=== PATIENT | female | born 1935 | race Caucasian/White ===

== ENCOUNTER 2017-09-13 07:46 | Outpatient (CLI) | payer MEDICARE, BC ==
--- NOTE | 2017-09-13 14:02 | NM ---
NUCLEAR MEDICINE HIDA WITH DRUG: History Epigastric pain. COMPARISON: None. TECHNIQUE: Real-time planar imaging of the abdomen was performed after the intravenous administration of 4.9 mCi Technetium 99m Mebrofenin. Subsequently for ejection fraction, 8 ounces of ensure was given. FINDINGS: There is adequate early hepatic uptake of radiotracer. The common bile duct is seen quickly as well as the gallbladder. Bowel is seen. The calculated gallbladder ejection fraction is 43%, although this is over a time of nearly 1 hour. IMPRESSION: Normal nuclear medicine HIDA scan with ejection fraction. POS: [facility]
== END 2017-09-13 07:47 | disposition home or self-care (01) ==
LOC: NM 07:46
PROVIDERS: ATTEND Internal Medicine
DX: K81.0 Acute cholecystitis (principal); K21.0 Gastro-esophageal reflux disease with esophagitis; R14.0 Abdominal distension (gaseous); K58.9 Irritable bowel syndrome, unspecified
CPT/HCPCS: 78227; A9537

== ENCOUNTER 2018-07-27 09:44 | Outpatient (CLI) | payer MEDICARE, BC ==
--- NOTE | 2018-07-27 13:12 | BD ---
DEXA BONE DENSITY SCAN: DATE: 07/27/2018. HISTORY: Postmenopausal female undergoing screening for osteoporosis. COMPARISON: 08/28/2012. Lumbar Spine: BMD (g/cm2) L1 0.761 T-Score: -2.1, previous -1.9 L2 0.863 T-Score: -1.5, previous -0.1 L3 1.182 T-Score: 0.9, previous 0.7 L4 1.056 T-Score: 0.9, previous -1.6 L1-L4 0.973 T-Score: -0.7, previous -0.8 Femoral Neck: 0.932 T-Score: 0.8, previous 0.2 Total Femur: 0.861 T-Score: -0.7, previous -1.1 FRAX-WHO fracture risk assessment tool is not reported as all T-scores are at or above -1.0. Impression: Normal bone mineral density throughout the lumbar spine and femoral neck/proximal femur. There is th e possibility that the bone mineral density in the lumbar spine is slightly falsely elevated on the b asis of degenerative change at L3 and L4. POS: [facility]
== END 2018-07-27 09:45 | disposition home or self-care (01) ==
LOC: BICMAMMO 09:44
PROVIDERS: ATTEND Internal Medicine
DX: Z12.31 Encounter for screening mammogram for malignant neoplasm of breast (principal); M85.89 Other specified disorders of bone density and structure, multiple sites; Z85.038 Personal history of other malignant neoplasm of large intestine
CPT/HCPCS: 77063; 77067; 77080

== ENCOUNTER 2018-10-27 09:10 | Emergency (ER) | payer MEDICARE, BC ==
[2018-10-27 10:16] LABS: #Eosinphils 0.1 thou/uL (0.0-0.7); #Lymphocytes 0.7 thou/uL (1.20-3.40); #Monocytes 0.5 thou/uL (0.11-0.59); %Basophils 0.2 % (0.0-1.0); %Eosinophils 1.8 % (0.0-10.0); %Lymphocytes 12.7 % (21.0-51.0); %Monocytes 9.3 % (0.0-10.0); %Neutrophils 76.1 % (42.0-75.0); Hemoglobin 12.9 g/dL (12.0-16.0); Mean Corpuscular HGB CONC 32.6 g/dL (32.0-36.0); Mean Corpuscular Hemoglobin 30.5 pg (27.0-31.0); Mean Corpuscular Volume 93.7 fL (78.0-98.0); Mean Platelet Volume 7.8 fL (7.4-10.4); Platelet Count 159 thou/uL (130-400); RBC Distribution Width 11.9 % (11.5-14.5); Red Blood Cell (RBC) Count 4.21 mill/uL (4.20-5.40); White Blood Cell (WBC) Count 5.2 thou/uL (4.8-10.8)
[2018-10-27 10:38] LABS: ALT (SGPT) 14 U/L (8-55); AST (SGOT) 16 U/L (5-34); Albumin 4.5 g/dL (3.4-4.8); Alkaline Phosphatase 79 U/L (40-150); Anion Gap 11 mmol/L (10-20); BUN (Urea Nitrogen) 12 mg/dL (9.8-20.1); Bilirubin, Total 0.6 mg/dL (0.2-1.2); Calc. Creatinine Clearance 0 mL/min (70-130); Calcium 9.7 mg/dL (7.8-10.44); Carbon Dioxide 28 mmol/L (23-31); Chloride 101 mmol/L (98-107); Estimated GFR-MDRD 64; Globulin 2.5 g/dL (2.4-3.5); Glucose 120 mg/dL (83-110); Lipase 12 U/L (8-78); Sodium 136 mmol/L (136-145)
[2018-10-27 12:35] LABS: Bilirubin Negative (Negative); Blood, Urine Negative (Negative); Clarity CLEAR (Clear); Glucose, Urine (Dipstick) Negative (Negative); Leukocyte Small (Negative); Nitrite Negative (Negative); Protein, Urine (Dipstick) Negative (Neg-Trace); Specific Gravity, Urine 1.016 (1.002-1.036); Urobilinogen 0.2 mg/dL (0.2-1.0); pH, Urine 7.5 (5.0-9.0)
[2018-10-27 12:38] LABS: Bacteria/HPF None Seen HPF (None Seen); Hyaline Casts/LPF 0-3 HYALINE CAST LPF (0-3 Hyaline); Pathc Cast-AUWi Flag 0.43 (0-2.49); RBC/HPF 0-3 HPF (0-3); Squamous Epithelial None Seen HPF (0-3); WBC/HPF None Seen HPF (0-3)
--- NOTE | 2018-10-27 13:48 | CT ---
CT ABDOMEN AND PELVIS WITH IV CONTRAST: Date: 10/27/18 INDICATION: Lower abdominal pain. COMPARISON: Prior CT examination dated 08/13/15. FINDINGS: The lung bases are clear. There are stable hepatic cysts and fatty infiltration of the liver. The spleen, pancreas, adrenal gla nds, and kidneys appear within normal limits. There is a mild amount of retained stool within the colon. There is a moderate size fibroid uterus. Bladder, rectum, and perirectal soft tissues are unremarkabl e. No free fluid is evident. The visualized bladder is partially decompressed. There are moderate calcifications involving the abdominopelvic vasculature. There is scattered degenerative and osteoarthritic change. There is prominent disc degenerative disea se of the lumbar spine. IMPRESSION: 1. No definite CT explanation for the patient's lower abdominal pain. 2. Mild amount of retained stool within the colon. 3. Stable hepatic cysts and fatty liver. 4. Suspected fibroid uterus. Since the patient is having lower abdominal pain, further evaluation wi th pelvic ultrasound may be helpful to fully interrogate the uterus. The uterus is somewhat heterogen eous in appearance on CT with areas of some eccentric calcifications suspected in the fundus. POS: [facility]
[2018-10-27] MEDS ORDERED: ISOVUE-370 76%-LOCM 1 ML ONE (16:34)
[2018-10-27] MEDS ORDERED: Iopamidol 370 76% 50 ML VIAL FS ONE (16:34)
== END 2018-10-27 13:37 | disposition home or self-care (01) ==
LOC: ERS 09:10
DX: D25.9 Leiomyoma of uterus, unspecified (principal); I10 Essential (primary) hypertension; Z79.899 Other long term (current) drug therapy
CPT/HCPCS: 74177; 80053; 81003; 81015; 83690; 85025; Q9966; Q9967

== ENCOUNTER 2019-08-19 09:04 | Outpatient (CLI) | payer MEDICARE, BC ==
--- NOTE | 2019-08-19 09:51 | RAD ---
XR Chest Pa Lat STANDARD HISTORY: Inflammatory polyarthropathy. Evaluation for interstitial fibrosis. COMPARISON: 11/03/2015 study FINDINGS: Heart size is enlarged. There are atherosclerotic changes of the aorta. The lungs are clear of infiltrates. Some mild chronic appearing lung changes are again noted similar to the prior study. IMPRESSION: Cardiomegaly with mild chronic appearing lung changes. Stable as compared to 2016 study.
--- NOTE | 2019-08-19 11:33 | BD ---
DEXA BONE DENSITY STUDY: Date: 08/19/19 HISTORY: Postmenopausal. FINDINGS: Lumbar Spine: BMD (g/cm2) L1 0.763 T-Score: -2.1 L2 0.867 T-Score: -1.5 L3 1.249 T-Score: +1.5 L4 1.045 T-Score: -0.1 Total 0.990 T-Score: -0.5 Left Femoral Neck: 0.917 T-Score: +0.6 Total Femur: 0.824 T-Score: -1.0 IMPRESSION: 1. Normal bone mineral density of left femoral neck and lumbar spine. 2. 10 year fracture risk of a major osteoporotic fracture is 9.4% and of a hip fracture is 1.4%. The se fracture probabilities are calculated for n untreated patient. POS: [facility]
--- NOTE | 2019-08-19 13:30 | MMO ---
Bilateral MAMMO Bilat Screen [facility]. CLINICAL HISTORY: Patient is 83 years old and is seen for screening. The patient has no family history of breast cancer. The patient has a history of colon cancer in 2014. The patient has a history of right Excisional Biopsy in 1980s - benign. VIEWS: The views performed were: bilateral craniocaudal with tomosynthesis and bilateral mediolateral oblique with tomosynthesis. FILMS COMPARED: The present examination has been compared to prior imaging studies performed at [facility] on 03/25/2015, 04/19/2016, 07/10/2017 and 07/27/2018. This study has been interpreted with the assistance of computer-aided detection. MAMMOGRAM FINDINGS: The breasts are almost entirely fat. There are no suspicious masses, suspicious calcifications, or new areas of architectural distortion. IMPRESSION: THERE IS NO MAMMOGRAPHIC EVIDENCE OF MALIGNANCY. A ROUTINE FOLLOW-UP MAMMOGRAM IN 1 YEAR IS RECOMMENDED. THE RESULTS OF THIS EXAM WERE SENT TO THE PATIENT. ACR BI-RADS Category 1 - Negative MAMMOGRAPHY NOTE: 1. A negative mammogram report should not delay a biopsy if a dominant of clinically suspicious mass is present. 2. Approximately 10% to 15% of breast cancers are not detected by mammography. 3. Adenosis and dense breasts may obscure an underlying neoplasm. Reported by: CHIDI HERNANDEZ MD Electonically Signed: [id number]
== END 2019-08-19 09:05 | disposition home or self-care (01) ==
LOC: BICMAMMO 09:04
PROVIDERS: ATTEND Internal Medicine Rheumatology
DX: Z12.31 Encounter for screening mammogram for malignant neoplasm of breast (principal); M81.0 Age-related osteoporosis without current pathological fracture; M06.4 Inflammatory polyarthropathy; I51.7 Cardiomegaly
CPT/HCPCS: 71046; 77063; 77067; 77080

== ENCOUNTER 2020-08-24 13:49 | Outpatient (CLI) | payer MEDICARE, BC ==
--- NOTE | 2020-08-24 14:48 | BD ---
EXAM: DEXA bone density examination HISTORY: 84-year-old postmenopausal female for screening COMPARISON: 08/19/2019 FINDINGS: L1--bone mineral density 0.793 g/sq cm; T score -1.8 L2--bone mineral density 0.892 g/sq cm; T score -1.2 L3--bone mineral density 1.240 g/sq cm; T score 1.4 L4--bone mineral density 1.091 g/sq cm; T score 0.3 Total L1-L4--bone mineral density 1.014 g/sq cm; T score -0.3 Right femoral neck--bone mineral density1.032; T score 1.6 Total proximal right femur--bone mineral density 0.859; T score -0.7 Left femoral neck--bone mineral density0.917; T score 0.6 Total proximal left femur--bone mineral density 0.859; T score -0.7 IMPRESSION: Normal bone density. This patient has a 10 year WHO fracture risk of a major osteoporotic fracture of 9.0% and of a hip fracture of 1.4%. When compared to the prior examination, the bone density in the right hip has increased 5.1%, the bone density in the left hip has increased 4.3%, and the bone density in the spine has increased 2.4%.
--- NOTE | 2020-08-24 14:58 | MMO ---
Bilateral MAMMO Bilat Screen [facility]. CLINICAL HISTORY: Patient is 84 years old and is seen for screening. The patient has no family history of breast cancer. The patient has a history of colon cancer in 2014. The patient has a history of right Excisional Biopsy in - benign. VIEWS: The views performed were: bilateral craniocaudal with tomosynthesis and bilateral mediolateral oblique with tomosynthesis. FILMS COMPARED: The present examination has been compared to prior imaging studies performed at [facility] on 04/19/2016, 07/10/2017, 07/27/2018 and 08/19/2019. This study has been interpreted with the assistance of computer-aided detection. MAMMOGRAM FINDINGS: There are scattered fibroglandular densities. There are benign appearing and vascular calcifications seen in both breasts. There are no suspicious masses, suspicious calcifications, or new areas of architectural distortion. IMPRESSION: THERE IS NO MAMMOGRAPHIC EVIDENCE OF MALIGNANCY. A ROUTINE FOLLOW-UP MAMMOGRAM IN 1 YEAR IS RECOMMENDED. THE RESULTS OF THIS EXAM WERE SENT TO THE PATIENT. ACR BI-RADS Category 2 - Benign finding MAMMOGRAPHY NOTE: 1. A negative mammogram report should not delay a biopsy if a dominant of clinically suspicious mass is present. 2. Approximately 10% to 15% of breast cancers are not detected by mammography. 3. Adenosis and dense breasts may obscure an underlying neoplasm. Reported by: ALEX GUILLERMO MD Electonically Signed: [id number]
== END 2020-08-24 13:50 | disposition home or self-care (01) ==
LOC: BICMAMMO 13:49
PROVIDERS: ATTEND Internal Medicine
DX: Z12.31 Encounter for screening mammogram for malignant neoplasm of breast (principal); M81.0 Age-related osteoporosis without current pathological fracture; Z85.038 Personal history of other malignant neoplasm of large intestine; Z91.89 Other specified personal risk factors, not elsewhere classified
CPT/HCPCS: 77063; 77067; 77080

== ENCOUNTER 2021-09-23 14:23 | Outpatient (CLI) | payer MEDICARE, BC | END 2021-09-23 14:24 | disposition home or self-care (01) | LOC: BICMAMMO 14:23 | PROVIDERS: ATTEND Internal Medicine | DX: Z12.31 Encounter for screening mammogram for malignant neoplasm of breast (principal); Z85.038 Personal history of other malignant neoplasm of large intestine; Z91.89 Other specified personal risk factors, not elsewhere classified | CPT/HCPCS: 77063; 77067 ==

== ENCOUNTER 2022-07-05 09:44 | Outpatient (CLI) | payer MEDICARE, BC | END 2022-07-05 09:45 | disposition home or self-care (01) | LOC: MRI 09:44 | PROVIDERS: ATTEND Specialist | DX: M51.16 Intervertebral disc disorders with radiculopathy, lumbar region (principal); M43.16 Spondylolisthesis, lumbar region; M47.26 Other spondylosis with radiculopathy, lumbar region; M47.815 Spondylosis without myelopathy or radiculopathy, thoracolumbar region; M47.817 Spondylosis without myelopathy or radiculopathy, lumbosacral region | CPT/HCPCS: 72148 ==

== ENCOUNTER 2022-08-29 10:10 | Outpatient (CLI) | payer MEDICARE, BC ==
[2022-08-29 11:38] LABS: Hemoglobin 11.4 g/dL (12.0-15.5); Mean Corpuscular HGB CONC 32.9 g/dL (32.0-36.0); Mean Corpuscular Hemoglobin 30.8 pg (27.0-33.0); Mean Corpuscular Volume 93.5 fl (81.6-98.3); Platelet Count 236 10x3/uL (150-450); RBC Distribution Width 12.6 % (11.5-14.5); White Blood Cell (WBC) Count 6.7 10x3/uL (3.5-10.5)
[2022-08-29 12:10] LABS: Anion Gap 14 mmol/L (10-20); BUN (Urea Nitrogen) 18 mg/dL (9.8-20.1); Calc. Creatinine Clearance 0 mL/min (70-130); Calcium 9.7 mg/dL (7.8-10.44); Carbon Dioxide 24 mmol/L (23-31); Chloride 97 mmol/L (98-107); Estimated GFR 57; Glucose 96 mg/dL (83-110); Potassium 4.9 mmol/L (3.5-5.1); Sodium 130 mmol/L (136-145)
== END 2022-08-29 10:11 | disposition home or self-care (01) ==
LOC: LABBT 10:10
PROVIDERS: ATTEND Neurological Surgery
DX: Z01.818 Encounter for other preprocedural examination (principal); M43.16 Spondylolisthesis, lumbar region
CPT/HCPCS: 80048; 85027; 93005; 93010

== ENCOUNTER 2022-12-08 14:35 | Outpatient (CLI) | payer MEDICARE, BC | END 2022-12-08 14:36 | disposition home or self-care (01) | LOC: TBSIIMAG 14:35 | PROVIDERS: ATTEND Neurological Surgery | DX: M48.062 Spinal stenosis, lumbar region with neurogenic claudication (principal); M47.816 Spondylosis without myelopathy or radiculopathy, lumbar region | CPT/HCPCS: 72100 ==